=== PATIENT | male | born 2000 | race Caucasian/White ===

== ENCOUNTER 2021-10-17 19:35 | Emergency (ER) | payer OTHER ==
[~2021-10-17] VITALS: Ht 165.1 cm; Wt 66.4 kg
[2021-10-17 19:48] VITALS: BP 130/74
--- NOTE | 2021-10-17 19:56 | NUR ---
PT TAKEN TO ER BED 12
[2021-10-17] MEDS ORDERED: ONDANSETRON 4 MG ODT PO ONE (20:05)
[2021-10-17] MEDS ORDERED: ACETAMINOPHEN EXTRA STRENGTH 500 MG TAB PO ONE (20:05)
--- NOTE | 2021-10-17 20:22 | NUR ---
REPORTS SKIING WITH NO HELMET AND FALLING, HITTING HIS HEAD. POS LOC AND REPORTS WAKING UP TO MIX CHEMIST AROUND HIM. COMPLAINS OF HEADACHE AND NAUSEA AT THIS TIME. NO VISIBLE WOUNDS, COAX4 AT THIS TIME AND AMBULATORY
--- NOTE | 2021-10-17 20:40 | NUR ---
PATIENT WALKED OUT AT THIS TIME FROM THE ER
--- NOTE | 2021-10-17 20:44 | NUR ---
MARY AT THIS TIME. NICK RODRIGUEZ ADVISED.
== END 2021-10-17 20:44 | disposition left against medical advice (07) ==
LOC: MED 19:35
DX: S06.9X1A Unspecified intracranial injury with loss of consciousness of 30 minutes or less, initial encounter (principal); R55 Syncope and collapse; F17.200 Nicotine dependence, unspecified, uncomplicated; F12.90 Cannabis use, unspecified, uncomplicated; Z71.6 Tobacco abuse counseling; W22.8XXA Striking against or struck by other objects, initial encounter; Y93.89 Activity, other specified; Y92.89 Other specified places as the place of occurrence of the external cause; Y99.8 Other external cause status
CPT/HCPCS: 70450; 99284; Q0162